=== PATIENT | female | born 1970 | race Caucasian/White ===

== ENCOUNTER → 2021-03-26 10:13 | Outpatient (CLI) | payer MEDICARE, SELFPAY ==
--- NOTE | 2021-03-26 10:19 | MRI_ITS ---
STUDY: MRI THORACIC SPINE WITH AND WITHOUT CONTRAST REASON FOR EXAM: Female, 50 years old. Gait disorder; reported thoracic disc herniation TECHNIQUE: IV 15ml Dotarem was administered for the contrast portion of the examination. COMPARISON: None. FINDINGS: Normal kyphosis of the thoracic spine. There is no substantial scoliosis. T1-2, T2-3, T3-4, T4-5, T5-6, T6-7, T7-8, T8-9, T9-10, T10-11, T11-12: At T6/T7 and at T7/T8, there are small central disc protrusions which produces mild spinal stenosis with abutment of the central spinal cord but no norma cord compression with abundant CSF posterior to the cord. Normal visualized thoracic cord. Normal conus medullaris that terminates at the L1.. The soft tissue structures are unremarkable. There is no enhancing abnormality. MRI/Spine Thoracic W/WO Contrast IMPRESSION: Mild degenerative disc disease of the mid thoracic spine but no cord compression. Electronically Signed: Merritt Boykin MD at 12:49 EST Tel , Service support ,
--- NOTE | 2021-03-26 10:19 | MRI_ITS ---
STUDY: MRI BRAIN WITH AND WITHOUT CONTRAST REASON FOR EXAM: Female, 50 years old. Migraine Headache TECHNIQUE: Standardized multiplanar fat and water weighted pulse sequences were obtained. IV 15ml Dotarem was administered for the contrast portion of the examination. COMPARISON: None. FINDINGS: Normal size of the ventricles and extra-axial spaces for the patient''s age. Normal white matter tracts of the supratentorial brain. There is no evidence for recent intracranial ischemia or other cause of cytotoxic edema on diffusion weighted imaging (DWI). Normal T2* images of the brain without demonstrated susceptibility artifact. There is no demonstrated hemosiderin stain. Normal bilateral basal ganglia. Normal thalami. There is no extra-axial fluid accumulation. Normal flow voids within the major intracranial circulation suggesting patency by spin echo criteria. Normal venous enhancement. There is no enhancing intra-axial or extra-axial abnormality. Normal sella turcica, pituitary gland, infundibular stalk, optic chiasm and hypothalamus. Normal tectal plate and pineal gland. Normal midbrain, lisette and medulla. Normal cerebellum. Normal basal cisterns. Normal bilateral temporal bones. Normal bilateral internal auditory canals. No demonstrated orbital abnormality, within the constraints of a routine brain study. Normal visualized paranasal sinuses. Normal calvarium and skull base. Normal visualized soft tissue structures. Normal visualized upper cervical spine. MRI/Brain W/WO Contrast IMPRESSION: Normal unenhanced and enhanced MRI of the brain. Electronically Signed: Merritt Boykin MD at 12:45 EST Tel , Service support ,
[2021-03-26 10:50] LABS: CREATININE FINGERSTICK 0.9 mg/dL (0.55-1.02); EGFR FINGERSTICK > 60.0000 mL/min (>60)
== END ==
PROVIDERS: Referring Provider Psychiatry & Neurology Neurology; Visit Provider Psychiatry & Neurology Neurology
DX: M51.24 Other intervertebral disc displacement, thoracic region (principal); R20.0 Anesthesia of skin; G43.909 Migraine, unspecified, not intractable, without status migrainosus; R26.9 Unspecified abnormalities of gait and mobility; R20.2 Paresthesia of skin; R53.1 Weakness
CPT/HCPCS: 70553; 72157; A9575

== ENCOUNTER → 2021-04-02 13:55 | Outpatient (CLI) | payer MEDICARE, SELFPAY ==
[2021-04-02 14:27] LABS: Erythrocyte Sedimentation Rate 17 mm/hr (0-30)
[2021-04-02 15:05] LABS: CPK Total, Creatine Kinase 84 U/L (26-192); CRP < 2.90 mg/L (0.0-3.0); Thyroid Stim Hormone (TSH) 1.68 uIU/mL (0.358-3.74)
[2021-04-02 17:20] LABS: Vitamin B12 422 pg/mL (211-911)
[2021-04-05 13:07] LABS: Vitamin D 1,25-Dihydroxy 41.3 pg/mL (19.9-79.3)
[2021-04-05 18:28] LABS: ANTINUCLEAR ANTIBODIES DIRECT Negative (Negative)
[2021-04-07 19:06] LABS: Vitamin B1, Thiamine 131.9 nmol/L (66.5-200.0)
[2021-04-07 19:36] LABS: Myoglobin, Serum 29 ng/mL (25-58)
== END ==
PROVIDERS: Visit Provider Psychiatry & Neurology Neurology
DX: R20.0 Anesthesia of skin (principal); R20.2 Paresthesia of skin; R26.9 Unspecified abnormalities of gait and mobility; R51.9 Headache, unspecified; R53.1 Weakness
CPT/HCPCS: 36415; 82550; 82607; 82652; 82746; 83874; 84425; 84443; 85652; 86038; 86140; 86225; 86235